=== PATIENT | female | born 1970 | race Caucasian/White ===

== ENCOUNTER → 2017-01-10 | Outpatient (CLI) | payer OTHER | LOC: RAD 12:57 | PROVIDERS: ATTEND Specialist | DX: I26.99 Other pulmonary embolism without acute cor pulmonale (principal) | CPT/HCPCS: 71275 ==

== ENCOUNTER → 2017-04-15 | Outpatient (CLI) | payer OTHER ==
--- NOTE | 2017-04-15 13:35 | RADIOLOGY REPORT (SQ) ---
EXAM DESCRIPTION: VENOUS UNILATERAL LOWER COMPLETED DATE/TIME: 04/15/2017 1:23 pm REASON FOR STUDY: RLE PAIN, SWELLING M79.89 OTHER SPECIFIED SOFT TISSUE DISORDERS I26.99 OTHER PUL MONARY EMBOLISM WITHOUT ACUTE COR PULMONALE COMPARISON: None. TECHNIQUE: Dynamic and static kelly scale and color images acquired of the right leg venous system. S elected spectral images acquired with additional compression and augmentation maneuvers. The contrala teral common femoral vein and saphenofemoral junction were also imaged. Images stored on PACS. LIMITATIONS: None. FINDINGS: COMMON FEMORAL: Normal phasicity, compression and augmentation. No visualized echogenic ma terial on kelly scale. No defects on color images. FEMORAL: Normal compression and augmentation. No visualized echogenic material on kelly scale. No defe cts on color images. POPLITEAL: Normal compression, augmentation. No visualized echogenic material on kelly scale. No defec ts on color images. CALF VESSELS: Normal compression, augmentation. No visualized echogenic material on kelly scale. No de fects on color images. GSV and SSV: Normal compression, augmentation. No visualized echogenic material on kelly scale. No def ects on color images. ANY DEEP VENOUS INSUFFICIENCY: Not evaluated. ANY EVIDENCE OF POPLITEAL CYST: No. OTHER: No other significant finding. CONTRALATERAL COMMON FEMORAL VEIN AND SAPHENOFEMORAL JUNCTION: Normal phasicity, compression and augmentation. No visualized echogenic material on kelly scale. No de fects on color images. IMPRESSION: NO EVIDENCE DVT OR SVT IN THE RIGHT LEG. TECHNICAL DOCUMENTATION: JOB ID: [id number] [employer]- All Rights Reserved
== END ==
LOC: SP 12:44
PROVIDERS: ATTEND Specialist
DX: M79.661 Pain in right lower leg (principal); M79.89 Other specified soft tissue disorders; Z86.711 Personal history of pulmonary embolism
CPT/HCPCS: 93971

== ENCOUNTER → 2017-04-29 | Outpatient (CLI) | payer OTHER ==
--- NOTE | 2017-04-29 12:29 | RADIOLOGY REPORT (SQ) ---
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 TECHNIQUE: Pre and Post sialogram injection of contrast images, through the facial bones and orbits windowed for bone and soft tissue. Additional coronal and sagittal reconstructed images reviewed. A ll images stored on PACS. Maximum intensity projected images were also obtained. All CT scanners at this facility use dose modulation, iterative reconstruction, and/or weight based d osing when appropriate to reduce radiation dose to as low as reasonably achievable (ALARA). [facility]: Dose Right [facility]: CareDose [facility]: Dose Right [facility]: Teradose 4D [facility]: [employer] CONTRAST TYPE AND DOSE: 0.5 mL of Isovue 300 contrast mixed with 1 mL of saline. A total of 0.7 mL was injected into the left [place]'s duct during 2 facial soft tissues scans to evaluate the left par otid gland and parotid duct RENAL FUNCTION: None required. The patient is less than 50 years old. RADIATION DOSE: 180 mGy . LIMITATIONS: None. FINDINGS: Pre contrasted CT was performed. Bilateral parotid glands are normal in size, with access ory parotid tissue along the deep aspect of the right and left parotid ducts. No salivary stones. S ubmandibular, sublingual glands are unremarkable. A 27 gauge sialogram catheter was used to cannulate the orifice of left Cori's duct. Upon cannula tion, gentle hand injection of 0.35 mL was performed for the 1st pass of imaging, followed by another 0.35 mL for a 2nd pass of CT scanning. Axial imaging, sagittal and coronal reconstructions, maximum intensity projected images were reviewed. Post Procedure there were no immediate complications. 3.5 cm from the Cori's duct opening into the left upper buccal space, 2 tandem tight stenoses of t he main parotid duct are present, with greater than 75% stenosis. Stenoses are located where the delisa t enters the parotid gland. There is mild ectasia and irregularity of the ductal system inside the l eft parotid gland without salivary calculi or other filling defect. The left parotid gland is smaller and slightly higher in density than the right parotid gland indicat ing chronic inflammation. No focal left or right parotid gland masses are identified. FACIAL BONES: No fracture or bone lesion. ORBITS: Intact. No fracture. Symmetric intact globes and retroorbital soft tissues. PARANASAL SINUSES: Clear. No significant mucosal thickening, mass or fluid. No nasal polyps. Maxilla ry sinus outlets are patent. SOFT TISSUES: No mass or edema. No abnormal enhancement. INFERIOR BRAIN: Limited view. No acute findings. OTHER: No other significant finding. IMPRESSION: Left parotid duct high-grade tandem stenoses at the level where the duct enters the paro tid gland. Left parotid gland is slightly smaller and more dense than the right, likely indicating chronic left parotid inflammation. No salivary gland or salivary ductal stones are identified. TECHNICAL DOCUMENTATION: JOB ID: [id number] Quality ID # [id number]: Final reports with documentation of one or more dose reduction techniques (e.g., Au tomated exposure control, adjustment of the mA and/or kV according to patient size, use of iterative reconstruction technique) 2010 [employer]- All Rights Reserved
== END ==
LOC: RAD 09:18
PROVIDERS: ATTEND Family Medicine
DX: K11.1 Hypertrophy of salivary gland (principal)
CPT/HCPCS: 70488

== ENCOUNTER → 2017-06-03 | Outpatient (CLI) | payer OTHER | LOC: LAB 13:34 | PROVIDERS: ATTEND Nurse Practitioner Acute Care | DX: N89.8 Other specified noninflammatory disorders of vagina (principal); R30.0 Dysuria | CPT/HCPCS: 87086; 87210 ==

== ENCOUNTER 2019-02-04 18:45 | Emergency (ER) | payer OTHER ==
--- NOTE | 2019-02-04 19:39 | ER Document Report ---
ED Medical Screen (RME) - General Chief Complaint: Chest Pain Stated Complaint: CHEST PAIN Time Seen by Provider: 02/04/19 19:36 Primary Care Provider: JUSTIN MONSIVAIS NP [Primary Care Provider] - Follow up as needed Mode of Arrival: Ambulatory Information source: Patient TRAVEL OUTSIDE OF THE [place] IN LAST 30 DAYS: No - HPI Patient complains to provider of: CP Onset: This morning - pt with h/o PE with onset of pleuritic CP starting this am which has gotten worse - Related Data Allergies/Adverse Reactions: codeine [Codeine] Allergy (Severe, Verified 12/30/15 10:42) migraines, n and v, Dizziness Penicillins Allergy (Severe, Verified 12/30/15 10:42) Hives adhesives Allergy (Severe, Uncoded 12/30/15 10:42) Blisters Past Medical History - Past Medical History Cardiac Medical History: Reports: Hx Hypertension - After 3rd child 1998 (meds x 6 mo), Hx Pulmonary Embolism Renal/ Medical History: Denies: Hx Peritoneal Dialysis GI Medical History: Reports: Hx Irritable Bowel Past Surgical History: Reports: Hx Abdominal Surgery - Colectomy, Hx Appendectomy, Hx Cholecystectomy, Hx Gynecologic Surgery - right oophorectomy, Hx Hysterectomy - Immunizations Hx Diphtheria, Pertussis, Tetanus Vaccination: Yes Physical Exam - Vital signs Vitals: Temp Pulse Resp BP Pulse Ox 98.3 F 79 14 128/61 H 97 02/04/19 19:07 02/04/19 19:07 02/04/19 19:07 02/04/19 19:07 02/04/19 19:07 Course - Vital Signs Vital signs: Temp Pulse Resp BP Pulse Ox 98.3 F 79 14 128/61 H 97 02/04/19 19:07 02/04/19 19:07 02/04/19 19:07 02/04/19 19:07 02/04/19 19:07 Doctor's Discharge - Discharge Referrals: JUSTIN MONSIVAIS NP [Primary Care Provider] - Follow up as needed
--- NOTE | 2019-02-04 20:12 | EKG REPORT ---
SEVERITY:- ABNORMAL ECG - SINUS RHYTHM LEFT VENTRICULAR HYPERTROPHY : Confirmed by: Paula Gale MD 04-Feb-2019 20:10:17
[2019-02-04 20:25] LABS: ABSOLUTE EOSINOPHILS # (AUTO) 0.2 10^3/uL (0.0-0.6); ABSOLUTE LYMPHOCYTES (AUTO) 1.9 10^3/uL (0.5-4.7); ABSOLUTE MONOCYTES (AUTO) 0.6 10^3/uL (0.1-1.4); ABSOLUTE NEUT (AUTO) 5.2 10^3/uL (1.7-8.2); BASOPHILS % (AUTO) 0.5 % (0-2); EOSINOPHILS % (AUTO) 2.4 % (0-6); HEMATOCRIT 35.4 % (36.0-47.0); LYMPHOCYTES % (AUTO) 24.2 % (13-45); MEAN CORPUSCULAR HEMOGLOBIN 29.6 pg (27.0-33.4); MEAN CORPUSCULAR VOLUME 87 fl (80-97); MONOCYTES % (AUTO) 7.3 % (3-13); PLATELET COUNT 277 10^3/uL (150-450); RED BLOOD COUNT 4.06 10^6/uL (3.72-5.28); RED CELL DISTRIBUTION WIDTH 13.5 % (11.5-14.0); SEGMENTED NEUTROPHILS % (AUTO) 65.6 % (42-78); TOTAL CELLS COUNTED % (AUTO) 100 %; WHITE BLOOD COUNT 7.9 10^3/uL (4.0-10.5)
[2019-02-04 20:46] LABS: ALANINE AMINOTRANSFERASE 33 U/L (9-52); ALBUMIN 4.2 g/dL (3.5-5.0); ALKALINE PHOSPHATASE 88 U/L (38-126); ANION GAP 8 (5-19); ASPARTATE AMINO TRANSFERASE 38 U/L (14-36); BILIRUBIN,DIRECT 0.3 mg/dL (0.0-0.4); BILIRUBIN,TOTAL 0.4 mg/dL (0.2-1.3); BLOOD UREA NITROGEN 16 mg/dL (7-20); CALCIUM 9.6 mg/dL (8.4-10.2); CARBON DIOXIDE 29 mmol/L (22-30); CHLORIDE 103 mmol/L (98-107); CREATINE KINASE 93 U/L (30-135); GLUCOSE 85 mg/dL (75-110); POTASSIUM 4.1 mmol/L (3.6-5.0); SODIUM 139.6 mmol/L (137-145); TOTAL PROTEIN 7.7 g/dL (6.3-8.2)
[2019-02-04 20:57] LABS: CREATINE KINASE MB 1.51 ng/mL (<4.55)
[2019-02-04 20:58] LABS: TROPONIN I < 0.012 ng/mL
--- NOTE | 2019-02-04 22:12 | RADIOLOGY REPORT (SQ) ---
CT CHEST ANGIOGRAPHY WITHOUT THEN WITH IV CONTRAST HISTORY: Shortness of breath. COMPARISON: None. TECHNIQUE: CT angiogram of the chest with IV contrast. 3-D MIP images were obtained in coronal and sagittal reconstructions. This exam was performed according to our departmental dose-optimization program, which includes automated exposure control, adjustment of the mA and/or kV according to patient size and/or use of iterative reconstruction technique. FINDINGS: No filling defects are identified in the pulmonary trunk, main left and right pulmonary arteries, or the segmental branches. No aortic aneurysm or dissection is seen. No radiopaque foreign body is identified. The visualized upper abdomen demonstrates no acute findings. No acute osseous findings are seen. IMPRESSION: No acute pulmonary embolism.
--- NOTE | 2019-02-04 22:31 | ER Document Report ---
ED General - General Chief Complaint: Chest Pain Stated Complaint: CHEST PAIN Time Seen by Provider: 02/04/19 19:36 Primary Care Provider: JUSTIN MONSIVAIS NP [NURSE PRACTITIONER] - Follow up in 1 week Mode of Arrival: Ambulatory Notes: Patient is a 48-year-old female with a history of 2 different pulmonary emboli. She is therefore on lifetime anticoagulation with Xarelto. She says last PE was in 2016. She said the last 24 hours start to notice pain whenever she takes a deep breath. Pain is in the right lower lung space. She denies any trauma or injuries. No pain into the abdomen. No fevers. No other complaints at this time. No leg pain or leg swelling. TRAVEL OUTSIDE OF THE [place] IN LAST 30 DAYS: No - Related Data Allergies/Adverse Reactions: codeine [Codeine] Allergy (Severe, Verified 12/30/15 10:42) migraines, n and v, Dizziness Penicillins Allergy (Severe, Verified 12/30/15 10:42) Hives adhesives Allergy (Severe, Uncoded 12/30/15 10:42) Blisters Past Medical History - General Information source: Patient - Social History Smoking Status: Never Smoker Frequency of alcohol use: None Drug Abuse: None Family History: Reviewed & Not Pertinent Patient has suicidal ideation: No Patient has homicidal ideation: No - Past Medical History Cardiac Medical History: Reports: Hx Hypertension - After 3rd child 1998 (meds x 6 mo), Hx Pulmonary Embolism Renal/ Medical History: Denies: Hx Peritoneal Dialysis GI Medical History: Reports: Hx Irritable Bowel Past Surgical History: Reports: Hx Abdominal Surgery - Colectomy, Hx Appendectomy, Hx Cholecystectomy, Hx Gynecologic Surgery - right oophorectomy, Hx Hysterectomy - Immunizations Hx Diphtheria, Pertussis, Tetanus Vaccination: Yes Review of Systems - Review of Systems Notes: My Normal Review Basic REVIEW OF SYSTEMS: CONSTITUTIONAL : Denies fever, chills, or sweats. Denies recent illness. EENT: Denies eye, ear, throat, or mouth pain or symptoms. Denies nasal or sinus congestion. CARDIOVASCULAR: Pain over right lower chest RESPIRATORY: Denies cough, cold, or chest congestion. Denies shortness of breath, difficulty breathing, or wheezing. GASTROINTESTINAL: Denies abdominal pain. Denies nausea, vomiting, or diarrhea. Denies constipation. Last BM: MUSCULOSKELETAL: Denies neck or back pain or joint pain or swelling. SKIN: Denies rash or skin lesions. HEMATOLOGIC : History of pulmonary emboli. Patient currently on Xarelto. NEUROLOGICAL: Denies altered mental status or loss of consciousness. ALL OTHER SYSTEMS REVIEWED AND NEGATIVE. Physical Exam - Vital signs Vitals: Temp Pulse Resp BP Pulse Ox 98.3 F 79 14 128/61 H 97 02/04/19 19:07 02/04/19 19:07 02/04/19 19:07 02/04/19 19:07 02/04/19 19:07 - Notes Notes: General Appearance: Well nourished, alert, cooperative, no acute distress, mild obvious discomfort. Vitals: reviewed, See vital signs table. Eyes: PERRL, EOMI, Conjuctiva clear Mouth: No decreasd moisture Lungs: No wheezing, No rales, No rhonci, No accessory muscle use, good air exchange bilaterally. Heart: Normal rate, Regular rythm, No murmur, no rub Chest wall: No reproducible pain to palpation of her chest wall or back. Abdomen: Normal BS, soft, No rigidity, No abdominal tenderness, No guarding, no rebound, no abdominal masses, no organomegaly Extremities: strength 5/5 in all extremities, good pulses in all extremities, no swelling or tenderness in the extremities, no edema. Skin: warm, dry, appropriate color, no rash. No evidence of shingles on visual examination. Neuro: speech clear, oriented x 3, normal affect, responds appropriately to questions. Course - Re-evaluation Re-evalutation: 02/04/19 22:50 Patient looks well. I feel she is safe to be discharged home. CT of the chest is negative. 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 I suspect the most likely her pain is related to scar tissue that has developed over along the area and probably has a small tear over the scar tissue causing her pain when she takes deep breath. Patient otherwise looks well and I feel safe to be discharged home. I strongly encouraged her return to ER if she has difficulty breathing, worsening chest pain, fevers, or feels unwell. Patient agrees with plan will be discharged home. Dictation of this chart was performed using voice recognition software; therefore, there may be some unintended grammatical errors. - Vital Signs Vital signs: Temp Pulse Resp BP Pulse Ox 97.8 F 60 16 108/70 100 02/04/19 22:38 02/04/19 22:38 02/04/19 22:38 02/04/19 22:38 02/04/19 22:38 - Laboratory Result Diagrams: 02/04/19 20:15 02/04/19 20:15 Laboratory results interpreted by me: 02/04/19 02/04/19 20:15 20:15 Hct 35.4 L AST 38 H Discharge - Discharge Clinical Impression: Chest pain Condition: Good Disposition: HOME, SELF-CARE Additional Instructions: CT scan looking at your lungs shows no evidence of pulmonary embolism. I suspect that most likely you have scar tissue buildup in your lungs from your previous lung infarction. Sometimes this will tear and cause increasing pain that feels a lot like a blood clot in your lungs. Your blood work otherwise looks normal. At this time I feel you are safe to be discharged home. Have a low threshold to return to the ER if you have worsening difficulty breathing, fevers, or feel unwell. Referrals: JUSTIN MONSIVAIS NP [NURSE PRACTITIONER] - Follow up in 1 week
[2019-02-04 22:42] VITALS: BP 108/70
== END 2019-02-04 22:42 | disposition home or self-care (01) ==
LOC: ER 18:45
DX: R07.1 Chest pain on breathing (principal); Z86.711 Personal history of pulmonary embolism; Z79.01 Long term (current) use of anticoagulants; Z88.5 Allergy status to narcotic agent; Z88.0 Allergy status to penicillin; Z91.048 Other nonmedicinal substance allergy status
CPT/HCPCS: 36415; 71275; 80053; 82550; 82553; 84484; 85025; 85379; 93005; 93010; 99285